=== PATIENT | male | born 1970 | race Asian ===

== ENCOUNTER 2016-07-13 20:59 | Inpatient (IN) | payer BC ==
[~2016-07-13] VITALS: Ht 172.7 cm; Wt 99.8 kg
[~2016-07-13 20:59] MED LIST: ALBUTEROL SULF8.5 GM INH; PREDNISONE20 MG ORAL
[2016-07-13] MEDS ORDERED: SIMVASTATIN5 MG ORAL (21:10)
[2016-07-13 21:30] VITALS: BP 152/94
[2016-07-13] MEDS ORDERED: SILDENAFIL20 MG ORAL (21:38)
[2016-07-13 21:39] LABS: ALANINE AMINOTRANSFERASE 47 U/L (3-41); ALBUMIN/GLOBULIN RATIO 1.6 (1.0-2.7); ANION GAP 19 (5-15); ASPARTATE AMINO TRANSFERASE 28 U/L (5-40); CALCIUM 9.1 mg/dL (8.6-10.2); CARBON DIOXIDE 23 mEQ/L (20-30); CHLORIDE 95 mEQ/L (98-107); CREATININE 1.1 mg/dL (0.7-1.2); GLOMERULAR FILTRATION RATE > 60 mL/min (>60); HEMOLYSIS 7; POTASSIUM 3.7 mEQ/L (3.4-4.9); SODIUM 137 mEQ/L (135-145); TOTAL PROTEIN 7.3 g/dL (6.6-8.7); TROPONIN I < 0.30 ng/mL (<=0.30)
[2016-07-13 21:41] LABS: BASOPHILS % (AUTO) 1.3 % (0.0-2.0); LYMPHOCYTES % (AUTO) 35.3 % (20.0-45.0); MEAN CORPUSCULAR HEMOGLOBIN 29.6 PG (27.0-31.0); MEAN CORPUSCULAR HGB CONC 32.4 G/DL (32.0-36.0); MEAN CORPUSCULAR VOLUME 91 FL (80-99); MEAN PLATELET VOLUME 6.7 FL (6.5-10.1); MONOCYTES % (AUTO) 5.3 % (1.0-10.0); PLATELET COUNT 193 K/UL (150-450); RED BLOOD COUNT 5.23 M/UL (4.70-6.10); RED CELL DISTRIBUTION WIDTH 12.1 % (11.6-14.8); WHITE BLOOD COUNT 7.9 K/UL (4.8-10.8)
[2016-07-13 21:49] LABS: CKMB 1.8 ng/mL (< 6.7)
[2016-07-13] MEDS ORDERED: Mylanta II UD 30ml ORAL ONE (22:30)
[2016-07-13] MEDS ORDERED: Dicyclomine HCl 10mg/5ml oral soln ORAL ONE (22:30)
[2016-07-13 22:32] VITALS: BP 138/98
--- NOTE | 2016-07-13 22:32 | Emergency Room Report ---
History of Present Illness General Chief Complaint: Chest Pain Source: Patient Present Illness HPI Patient present with complaints of midsternal chest pain This started when he was walking home earlier today he felt some radiation to the right hand And felt a numbness and tingling sensation The numbness has improved however patient had continued discomfort in the midsternal area and presents to the ER Denies any vomiting or diarrhea pain is 5/10 heaviness midsternal denies any dysuria frequency denies any fall or trauma Allergies: Coded Allergies: No Known Allergies (Unverified , 03/29/16) Patient History Past Medical History: see triage record Pertinent Family History: none Reviewed Nursing Documentation: PMH: Agreed, PSxH: Agreed Nursing Documentation-PMH Hx Hypertension: Yes Review of Systems All Other Systems: negative except mentioned in HPI Physical Exam Vital Signs Date Time Temp Pulse Resp B/P Pulse Ox O2 Delivery O2 Flow Rate FiO2 07/13/16 21:05 98.1 81 19 151/95 100 Room Air Sp02 EP Interpretation: reviewed, normal General Appearance: well appearing, no apparent distress Head: normocephalic, atraumatic Eyes: bilateral eye EOMI, bilateral eye PERRL ENT: hearing grossly normal, normal pharynx, TMs + canals normal, uvula midline Neck: full range of motion, supple, no meningismus, no bony tend Respiratory: lungs clear, normal breath sounds, no rhonchi, no respiratory distress, no retraction, no accessory muscle use Cardiovascular #1: normal peripheral pulses, regular rate, rhythm, no edema, no gallop, no JVD, no murmur Gastrointestinal: normal bowel sounds, non tender, soft, no mass, no organomegaly, non-distended, no guarding, no hernia, no pulsatile mass, no rebound Genitourinary: no CVA tenderness Musculoskeletal: normal inspection Neurologic: oriented x3, responsive, hat block maker III-XII nml as tested, motor strength/ tone normal, sensory intact Psychiatric: mood/affect normal Skin: normal color, no rash, warm/dry, palpation normal Lymphatic: normal inspection, no adenopathy Medical Decision Making Diagnostic Impression: Primary Impression: ACS (acute coronary syndrome) ER Course Patient is a fairly complex patient with multiple differential to consideration including but not limited to cardiac cardiopulmonary and vascular emergencies Patient's blood work and imaging initially is appropriate patient has already received aspirin at home at this time remains pain-free And admitted for further inpatient Labs Test 07/13/16 21:15 White Blood Count 7.9 K/UL (4.8-10.8) Red Blood Count 5.23 M/UL (4.70-6.10) Hemoglobin 15.5 G/DL (14.2-18.0) Hematocrit 47.7 % (42.0-52.0) Mean Corpuscular Volume 91 FL (80-99) Mean Corpuscular Hemoglobin 29.6 PG (27.0-31.0) Mean Corpuscular Hemoglobin Concent 32.4 G/DL (32.0-36.0) Red Cell Distribution Width 12.1 % (11.6-14.8) Platelet Count 193 K/UL (150-450) Mean Platelet Volume 6.7 FL (6.5-10.1) Neutrophils (%) (Auto) 56.0 % (45.0-75.0) Lymphocytes (%) (Auto) 35.3 % (20.0-45.0) Monocytes (%) (Auto) 5.3 % (1.0-10.0) Eosinophils (%) (Auto) 2.0 % (0.0-3.0) Basophils (%) (Auto) 1.3 % (0.0-2.0) Sodium Level 137 mEQ/L (135-145) Potassium Level 3.7 mEQ/L (3.4-4.9) Chloride Level 95 mEQ/L (98-107) Carbon Dioxide Level 23 mEQ/L (20-30) Anion Gap 19 (5-15) Blood Urea Nitrogen 12 mg/dL (7-23) Creatinine 1.1 mg/dL (0.7-1.2) Estimat Glomerular Filtration Rate > 60 mL/min (>60) Glucose Level 125 mg/dL (74-106) Calcium Level 9.1 mg/dL (8.6-10.2) Total Bilirubin 0.3 mg/dL (0.0-1.2) Aspartate Amino Transf (AST/SGOT) 28 U/L (5-40) Alanine Aminotransferase (ALT/SGPT) 47 U/L (3-41) Alkaline Phosphatase 80 U/L (40-129) Total Creatine Kinase 181 U/L (38-174) Creatine Kinase MB 1.8 ng/mL (< 6.7) Creatine Kinase MB Relative Index 0.9 Troponin I < 0.30 ng/mL (<=0.30) Total Protein 7.3 g/dL (6.6-8.7) Albumin 4.5 g/dL (3.5-5.2) Globulin 2.8 g/dL Albumin/Globulin Ratio 1.6 (1.0-2.7) EKG Diagnostic Results Rate: normal Rhythm: NSR ST Segments: other - Right bundle branch block nonspecific ST and T-wave changes Rhythm Strip Diag. Results EP Interpretation: yes Rate: 66 Rhythm: NSR, no PVC's, no ectopy Chest X-Ray Diagnostic Results EP Interpretation: Yes Findings: no consolidation, no effusion, no pneumothorax Number of Views: 1 Last Vital Signs Date Time Temp Pulse Resp B/P Pulse Ox O2 Delivery O2 Flow Rate FiO2 07/13/16 21:30 98.3 80 16 152/94 100 Room Air Status: improved Disposition: ADMITTED INPATIENT Condition: Serious Referrals: NON PHYSICIAN (PCP) VIOLETA TYLER D.O. Jul 13, 2016 22:32
[2016-07-13 23:32] VITALS: BP 127/96
[2016-07-14] VITALS (8 sets, daily range): BP systolic 104–139; BP diastolic 70–97
[2016-07-14] MEDS ORDERED: Morphine Sulfate 2mg/ml Inj IVP PRN (00:15)
[2016-07-14] MEDS ORDERED: Ketorolac 30mg Inj IV PRN (00:15)
[2016-07-14] MEDS ORDERED: Enalaprilat 2.5mg/2ml Inj IV PRN (00:15)
[2016-07-14] MEDS ORDERED: DuoNeb 0.5-3(2.5)mg/3ml neb HHN PRN (00:15)
[2016-07-14] MEDS ORDERED: Diltiazem 25mg/5ml IV PRN (00:15)
[2016-07-14] MEDS ORDERED: Nitroglycerin Subl 0.4mg tab (Bottle Of 25) SL PRN (00:15)
[2016-07-14] MEDS ORDERED: Miralax 17gm pkt ORAL PRN (00:15)
[2016-07-14] MEDS: Aspirin Baby 81mg ORAL SCH (09:38)
[2016-07-14] MEDS: Heparin 5000 units/ml inj SUBQ SCH ×2 (09:39→20:23)
--- NOTE | 2016-07-14 11:31 | Diagnostic Imaging Report ---
Indication: Chest pain Technique: One view of the chest Comparison: 03/29/2016 Findings: Lungs and pleural spaces are clear. Heart size is normal. Impression: No acute process
[2016-07-14 12:21] LABS: TROPONIN I < 0.30 ng/mL (<=0.30)
--- NOTE | 2016-07-14 15:00 | Consultation ---
History of Present Illness General Date patient seen: Jul 14, 2016 Chief Complaint: Chest Pain Reason for Consultation: chest pain Present Illness HPI 46 year old male presented to ER with complaints of midsternal chest pain while walking with some radiation to the right hand. He is admitted to telemetry for further work up. Allergies: Coded Allergies: No Known Allergies (Unverified , 03/29/16) Medication History Scheduled Prednisone* (Prednisone*), 40 MG ORAL DAILY Simvastatin (Zocor), 5 MG ORAL BEDTIME, (Reported) Scheduled PRN Albuterol Sulfate* (Albuterol Sulfate Mdi*), 2 PUFF INH Q4H PRN for cough/ wheezing Miscellaneous Medications Sildenafil Citrate (Sildenafil), 20 MG ORAL, (Reported) Patient History Healthcare decision maker pt alert and oriented Resuscitation status Full Code Advanced Directive on File Past Medical/Surgical History Past Medical/Surgical History: (1) ACS (acute coronary syndrome) Review of Systems All Other Systems: negative except mentioned in HPI Physical Exam General Appearance: WD/WN Lines, tubes and drains: peripheral Neck: non-tender, normal alignment Respiratory/Chest: chest wall non-tender, lungs clear Cardiovascular/Chest: normal peripheral pulses, regular rhythm Abdomen: normal bowel sounds, non tender Genitourinary/Rectal: normal genital exam, normal rectal exam Last 24 Hour Vital Signs Date Time Temp Pulse Resp B/P Pulse Ox O2 Delivery O2 Flow Rate FiO2 07/14/16 12:00 76 07/14/16 11:32 98.1 65 18 128/93 96 Room Air 07/14/16 09:44 97.7 71 18 124/85 98 Room Air 07/14/16 07:34 98.0 66 13 130/97 95 Room Air 07/14/16 06:58 98.0 62 14 120/79 100 Room Air 07/14/16 05:15 98.0 61 14 104/70 100 Room Air 07/14/16 01:40 98.0 62 14 127/76 100 Room Air 07/13/16 23:32 98.0 63 14 127/96 100 Room Air 07/13/16 22:32 98.0 68 14 138/98 100 Room Air 07/13/16 21:30 98.3 80 16 152/94 100 Room Air 07/13/16 21:30 80 16 Room Air 07/13/16 21:05 98.1 81 19 151/95 100 Room Air Intake and Output 07/13/16 07/14/16 19:00 07:00 Intake Total 50 ml Output Total 1600 ml Balance -1550 ml Intake Oral 50 ml Output Urine Total 1600 ml # Voids 1 Laboratory Tests Test 07/13/16 21:15 07/14/16 11:52 White Blood Count 7.9 K/UL (4.8-10.8) Red Blood Count 5.23 M/UL (4.70-6.10) Hemoglobin 15.5 G/DL (14.2-18.0) Hematocrit 47.7 % (42.0-52.0) Mean Corpuscular Volume 91 FL (80-99) Mean Corpuscular Hemoglobin 29.6 PG (27.0-31.0) Mean Corpuscular Hemoglobin Concent 32.4 G/DL (32.0-36.0) Red Cell Distribution Width 12.1 % (11.6-14.8) Platelet Count 193 K/UL (150-450) Mean Platelet Volume 6.7 FL (6.5-10.1) Neutrophils (%) (Auto) 56.0 % (45.0-75.0) Lymphocytes (%) (Auto) 35.3 % (20.0-45.0) Monocytes (%) (Auto) 5.3 % (1.0-10.0) Eosinophils (%) (Auto) 2.0 % (0.0-3.0) Basophils (%) (Auto) 1.3 % (0.0-2.0) Sodium Level 137 mEQ/L (135-145) Potassium Level 3.7 mEQ/L (3.4-4.9) Chloride Level 95 mEQ/L (98-107) L Carbon Dioxide Level 23 mEQ/L (20-30) Anion Gap 19 (5-15) H Blood Urea Nitrogen 12 mg/dL (7-23) Creatinine 1.1 mg/dL (0.7-1.2) Estimat Glomerular Filtration Rate > 60 mL/min (>60) Glucose Level 125 mg/dL (74-106) H Calcium Level 9.1 mg/dL (8.6-10.2) Total Bilirubin 0.3 mg/dL (0.0-1.2) Aspartate Amino Transf (AST/SGOT) 28 U/L (5-40) Alanine Aminotransferase (ALT/SGPT) 47 U/L (3-41) H Alkaline Phosphatase 80 U/L (40-129) Total Creatine Kinase 181 U/L (38-174) H Creatine Kinase MB 1.8 ng/mL (< 6.7) Creatine Kinase MB Relative Index 0.9 Troponin I < 0.30 ng/mL (<=0.30) < 0.30 ng/mL (<=0.30) Total Protein 7.3 g/dL (6.6-8.7) Albumin 4.5 g/dL (3.5-5.2) Globulin 2.8 g/dL Albumin/Globulin Ratio 1.6 (1.0-2.7) Height (Feet): 5 Height (Inches): 8.00 Weight (Pounds): 220 Medications Current Medications Medications (Trade) Dose Ordered Sig/Lam Route PRN Reason Start Time Stop Time Status Last Admin Dose Admin Acetaminophen (Tylenol) 650 mg Q4H PRN ORAL FEVER 07/14/16 00:15 08/13/16 00:14 Albuterol/ Ipratropium (DuoNeb 0.5-3(2.5)mg/3ml) 3 ml Q4H PRN HHN Shortness of Breath 07/14/16 00:15 07/19/16 00:14 Aspirin (ASA) 162 mg DAILY ORAL 07/14/16 09:00 08/13/16 08:59 07/14/16 09:38 Diltiazem HCl (Cardizem) 10 mg Q1H PRN IV heart rate more than 120, 07/14/16 00:15 08/13/16 00:14 Enalaprilat (Vasotec) 2.5 mg Q6H PRN IV sbp more than 160 07/14/16 00:15 08/13/16 00:14 Heparin Sodium (Porcine) (Heparin 5000 units/ml) 5,000 units EVERY 12 HOURS SUBQ 07/14/16 09:00 08/13/16 08:59 07/14/16 09:39 Morphine Sulfate (Morphine Sulfate) 2 mg Q4H PRN IVP severe Pain (Pain Scale 7-10) 07/14/16 00:15 07/21/16 00:14 Nitroglycerin (Ntg) 0.4 mg Q5M PRN SL Prn Chest Pain 3/24/17 00:15 08/13/16 00:14 Ondansetron HCl (Zofran) 4 mg Q6H PRN IVP Nausea & Vomiting 07/14/16 00:15 08/13/16 00:14 Pantoprazole (Protonix) 40 mg DAILY ORAL 07/14/16 09:00 08/13/16 08:59 07/14/16 09:38 Polyethylene Glycol (Miralax) 17 gm DAILYPRN PRN ORAL Constipation 07/14/16 00:15 08/13/16 00:14 Temazepam (Restoril) 15 mg HSPRN PRN ORAL Insomnia 07/14/16 00:15 07/21/16 00:14 Assessment/Plan Problem List: (1) ACS (acute coronary syndrome) ICD Codes: I24.9 - Acute ischemic heart disease, unspecified SNOMED: 106490317 Assessment/Plan serial ekg, troponin echo cardiology evaluatin low risk for PE. MEDINA BELCHER Jul 14, 2016 15:00
--- NOTE | 2016-07-14 15:28 | History & Physical ---
History and Physical History & Physicial Job: [id number] Shine Lima MD Jul 14, 2016 15:28
--- NOTE | 2016-07-14 20:26 | Cardiology Progress Note ---
Assessment/Plan Assessment/Plan parasthesia / weakness in arms for 30-40 seconds jonny walkign with dog adn greocery bag hyperlipidemia he felt as if he was bign pull down denies any chest pain all torp neg ekg rbbb 2nd t changes if almagn to say in hosptialo to have stress test on moday fine otherwise will need to see me as outpt to perform the test ambualte inhalls no heacy exertion activity until see by me as outpt Objective Last 24 Hour Vital Signs Date Time Temp Pulse Resp B/P Pulse Ox O2 Delivery O2 Flow Rate FiO2 07/14/16 19:53 73 16 Room Air 07/14/16 16:00 98.2 72 20 115/87 98 Room Air 07/14/16 12:00 76 07/14/16 11:32 98.1 65 18 128/93 96 Room Air 07/14/16 09:44 97.7 71 18 124/85 98 Room Air 07/14/16 07:34 98.0 66 13 130/97 95 Room Air 07/14/16 06:58 98.0 62 14 120/79 100 Room Air 07/14/16 05:15 98.0 61 14 104/70 100 Room Air 07/14/16 01:40 98.0 62 14 127/76 100 Room Air 07/13/16 23:32 98.0 63 14 127/96 100 Room Air 07/13/16 22:32 98.0 68 14 138/98 100 Room Air 07/13/16 21:30 98.3 80 16 152/94 100 Room Air 07/13/16 21:30 80 16 Room Air 07/13/16 21:05 98.1 81 19 151/95 100 Room Air Intake and Output 07/13/16 07/14/16 19:00 07:00 Intake Total 50 ml Output Total 1600 ml Balance -1550 ml Intake Oral 50 ml Output Urine Total 1600 ml # Voids 1 Laboratory Tests Test 07/13/16 21:15 07/14/16 11:52 White Blood Count 7.9 K/UL (4.8-10.8) Red Blood Count 5.23 M/UL (4.70-6.10) Hemoglobin 15.5 G/DL (14.2-18.0) Hematocrit 47.7 % (42.0-52.0) Mean Corpuscular Volume 91 FL (80-99) Mean Corpuscular Hemoglobin 29.6 PG (27.0-31.0) Mean Corpuscular Hemoglobin Concent 32.4 G/DL (32.0-36.0) Red Cell Distribution Width 12.1 % (11.6-14.8) Platelet Count 193 K/UL (150-450) Mean Platelet Volume 6.7 FL (6.5-10.1) Neutrophils (%) (Auto) 56.0 % (45.0-75.0) Lymphocytes (%) (Auto) 35.3 % (20.0-45.0) Monocytes (%) (Auto) 5.3 % (1.0-10.0) Eosinophils (%) (Auto) 2.0 % (0.0-3.0) Basophils (%) (Auto) 1.3 % (0.0-2.0) Sodium Level 137 mEQ/L (135-145) Potassium Level 3.7 mEQ/L (3.4-4.9) Chloride Level 95 mEQ/L (98-107) L Carbon Dioxide Level 23 mEQ/L (20-30) Anion Gap 19 (5-15) H Blood Urea Nitrogen 12 mg/dL (7-23) Creatinine 1.1 mg/dL (0.7-1.2) Estimat Glomerular Filtration Rate > 60 mL/min (>60) Glucose Level 125 mg/dL (74-106) H Calcium Level 9.1 mg/dL (8.6-10.2) Total Bilirubin 0.3 mg/dL (0.0-1.2) Aspartate Amino Transf (AST/SGOT) 28 U/L (5-40) Alanine Aminotransferase (ALT/SGPT) 47 U/L (3-41) H Alkaline Phosphatase 80 U/L (40-129) Total Creatine Kinase 181 U/L (38-174) H Creatine Kinase MB 1.8 ng/mL (< 6.7) Creatine Kinase MB Relative Index 0.9 Troponin I < 0.30 ng/mL (<=0.30) < 0.30 ng/mL (<=0.30) Total Protein 7.3 g/dL (6.6-8.7) Albumin 4.5 g/dL (3.5-5.2) Globulin 2.8 g/dL Albumin/Globulin Ratio 1.6 (1.0-2.7) JIGNA AL Jul 14, 2016 20:26
--- NOTE | 2016-07-14 20:28 | History and Physical Report ---
DATE OF ADMISSION: 07/13/2016 CHIEF COMPLAINT: Left-sided chest wall pressure pain as well as right upper extremity tingling and numbness. HISTORY OF PRESENT ILLNESS: This is a 46-year-old gentleman with past medical history significant for dyslipidemia and erectile dysfunction who was presented to the hospital complaining about right hand tingling and numbness for several minutes and then left-sided chest pressure. He was at the grocery shop, on the way home he felt chest discomfort in the chest wall and subsequently lasted about two seconds, very sharp pain, constant. He said that went home took two aspirins and then and he decided to come to the emergency room for further evaluation and workup. Shortly after initial evaluation in the emergency, the patient was admitted to the hospital with chest pain, possible acute coronary syndrome. He denies any diaphoresis. He complained about 5/10 heaviness in the midsternal area. Denies any dysuria or frequency. Denies any fall or chest trauma. PAST MEDICAL HISTORY/PAST SURGICAL HISTORY: As above, history of erectile dysfunction and has dyslipidemia. MEDICATIONS: At home is significant simvastatin 5 mg p.o. at bedtime as well as sildenafil 20 mg b.i.d. p.r.n. ALLERGIES: No known drug allergies. SOCIAL HISTORY: Denies any smoking. Socially drinks. No substance abuse. 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 FAMILY HISTORY: Father with liver cancer and mother with breast cancer. REVIEW OF SYSTEMS: Mostly as above. Denies any dysuria, frequency, hematuria or hematochezia. Denies any hemoptysis or hematochezia. Denies any suicidal or homicidal ideation. Denies any loss of consciousness. Denies any double vision. Denies any chest wall pressure at this time. PHYSICAL EXAMINATION: GENERAL: The patient awake, responsive, no acute distress. VITAL SIGNS: On admission, temperature of 98.1 degrees, pulse of 81, respiration 18, and blood pressure 151/95. HEENT: Pupils are equal and reactive to light. Extraocular movements are intact. NECK: Supple. No JVD. LUNGS: Good air entry. No wheezing or rales. HEART: S1 and S2. Regular rhythm. No gallops. ABDOMEN: Soft, nondistended and nontender. Mildly obese. EXTREMITIES: No cyanosis, clubbing, or edema. NEUROLOGIC: Cranial nerves II to XII grossly intact. Motor strength 5/5 in all extremities. Gait is intact. GENITOURINARY: Refused and deferred. RECTAL: Refused and deferred. PSYCHIATRIC: Mood and affect is intact. LABORATORY AND DIAGNOSTIC DATA: Laboratory data on admission, WBC of 7.9, hemoglobin 15, hematocrit 47 and platelet is 193,000. Sodium 137, potassium 3.7, chloride 95, bicarbonate 23, BUN 12, creatinine 1.1, and glucose 125. AST of 28 and ALT of 47. First and second troponin is less than 0.30. Chest x-ray is unremarkable, no acute cardiopulmonary disease. EKG shows normal sinus rhythm at 78 with right bundle-branch block. No ST elevation was noted. T-wave inversion in the inferior leads. ASSESSMENT: 1. Chest pain, possible acute coronary syndrome. 2. Right bundle-branch block. 3. Dyslipidemia. 4. Erectile dysfunction. PLAN: Admit the patient to telemetry. We will follow up laboratory. Discussed the case with Dr. Curran from Pulmonary Critical Care and Dr. Star Quiñonez from Cardiology. We follow up with 2D echo. Cholesterol level and consider getting a stress test if the patient's status improves. Code Status is Full Code. DVT prophylaxis and heparin subcutaneous. Shine Lima M.D. DR: HELENA JOB#: [id number] CC:
[2016-07-15] VITALS: BP 121/84
--- NOTE | 2016-07-15 01:58 | Consultation ---
DATE OF CONSULTATION: 07/14/2016 CARDIOLOGY CONSULTATION REFERRING PHYSICIAN: 1. Tyrone Curran M.D. 2. Shine Lima M.D. REASON FOR REFERRAL: Palpitations. HISTORY OF PRESENT ILLNESS: This is a 46-year-old gentleman, who apparently was walking with his dog and a bag of groceries yesterday, that he developed sudden numbness in his arms and felt like somebody was pulling him down sensation and he panic. He started to having some palpitations. These symptoms eventually resolved and he walked home, called the sister and the patient's sister came to the hospital. He really does not have any pain or pressure in his chest. He does not have any dyspnea on exertion. He has no PND or orthopnea. He usually does not get dizzy or lightheaded on standing. This was the first episode of such episodes before and he has never had any before. PAST MEDICAL HISTORY: Positive for hyperlipidemia and gastroesophageal reflux disease. No history of heart attack, cancer, stroke, hepatitis, tuberculosis, asthma, or emphysema. No ulcers, no kidney problems, liver problems, thyroid problems, anemia, or arthritis. SOCIAL HISTORY: He used to smoke until approximately a year and a half ago and he quit at that time. He socially drinks alcoholic beverages. No drugs. 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 REVIEW OF SYSTEMS: Gastrointestinal: He has had some diarrhea. Genitourinary: Negative. Pulmonary: Negative. Constitutional: Negative. Neurological: Negative. PHYSICAL EXAMINATION: GENERAL: Shows to be a middle-aged gentleman, in no apparent distress. VITAL SIGNS: The patient's vital signs have been anywhere between 104/70 to 128/93 today. At the time of his presentation to the emergency room yesterday, his blood pressure was 151/95. HEENT: Unremarkable. NECK: Supple. No jugular venous distention. No abdominojugular reflux. LUNGS: Clear to auscultation and percussion. CARDIAC EXAMINATION: S1 is normal. S2 is normal. Regular rate and rhythm. No heaves, thrills, gallops, or rubs are noted. ABDOMEN: Soft and nontender. Positive bowel sounds. EXTREMITIES: There is no clubbing, cyanosis, nor edema. NEUROLOGIC: He is awake, alert, responsive, and in no apparent respiratory distress. LABORATORY AND DIAGNOSTIC DATA: EKG showed left bundle-branch conduction defect with secondary T-wave changes. No significant ST-T wave abnormalities. An echocardiogram was done, preliminary report shows normal left ventricular systolic function, ejection fraction 65% to 70%, really no other significant abnormalities. His laboratories white count 7.9, hemoglobin 13.5, and platelet count 193,000. His sodium is 137, potassium 3.5, chloride 97, bicarbonate 23, BUN of 22, creatinine 1.1, and glucose of 125. Liver function tests are normal. CK of 181. Two sets of cardiac enzymes are all negative. Imaging, he had a chest x-ray in the emergency room that shows basically no acute process. ASSESSMENT AND PLAN: 1. Paresthesias short duration. 2. Possible near syncope. 3. Hyperlipidemia history. PLAN: Dr. Curran and Dr. Lima, this patient was seen in cardiac consultation. The patient's description is not one of chest pain rather that he is feeling like he was being pulled down after this tingling sensation in his arms. He does not seem to have any symptoms at this time, but it lasted only approximately 30 seconds. His telemetry data so far is negative. His EKG shows a right bundle block conduction defect. That the duration of this is unknown. The patient has no evidence of myonecrosis. His echocardiogram preliminary seems unremarkable. He may benefit from stress testing in light of the fact that his symptoms occurred while he was walking that he is willing to wait until Sunday fine if he is not continue to see me as outpatient to have the testing performed. Star Quiñonez M.D. DR: ORALIA JOB#: [id number] CC:
[2016-07-15 04:00] VITALS: BP 119/77
[2016-07-15 06:51] LABS: PROTHROMBIN TIME 9.9 SEC (9.30-11.50)
[2016-07-15 06:57] LABS: TROPONIN I < 0.30 ng/mL (<=0.30)
[2016-07-15 07:01] LABS: BASOPHILS % (AUTO) 0.8 % (0.0-2.0); EOSINOPHILS % (AUTO) 3.1 % (0.0-3.0); LYMPHOCYTES % (AUTO) 27.7 % (20.0-45.0); MEAN CORPUSCULAR HEMOGLOBIN 29.5 PG (27.0-31.0); MEAN CORPUSCULAR VOLUME 89 FL (80-99); MEAN PLATELET VOLUME 7.2 FL (6.5-10.1); MONOCYTES % (AUTO) 7.2 % (1.0-10.0); NEUTROPHILS % (AUTO) 61.2 % (45.0-75.0); PLATELET COUNT 206 K/UL (150-450); RED BLOOD COUNT 5.67 M/UL (4.70-6.10); RED CELL DISTRIBUTION WIDTH 12.1 % (11.6-14.8)
[2016-07-15 07:03] LABS: CHOLESTEROL/HDL RATIO 5.6 (3.3-4.4); CRP QUANT 0.3 mg/dL (< 0.5)
[2016-07-15 08:00] VITALS: BP 123/89
[2016-07-15] MEDS: Aspirin Baby 81mg ORAL SCH (08:23)
[2016-07-15] MEDS: Heparin 5000 units/ml inj SUBQ SCH (08:24)
--- NOTE | 2016-07-15 11:18 | Pulmonology Progress Note ---
Assessment/Plan Problems: (1) ACS (acute coronary syndrome) Assessment/Plan pt is being discharged to have stress test by Dr. Quiñonez asymptomatic Subjective ROS Limited/Unobtainable: No Constitutional: Reports: no symptoms HEENT: Repors: no symptoms Respiratory: Reports: no symptoms Allergies: Coded Allergies: No Known Allergies (Unverified , 03/29/16) Objective Last 24 Hour Vital Signs Date Time Temp Pulse Resp B/P Pulse Ox O2 Delivery O2 Flow Rate FiO2 07/15/16 09:35 75 16 Room Air 07/15/16 08:00 81 07/15/16 08:00 97.7 74 20 123/89 96 Room Air 07/15/16 04:00 97.3 69 16 119/77 96 Room Air 07/15/16 04:00 61 07/15/16 00:00 65 07/15/16 00:00 97.9 73 16 121/84 98 Room Air 07/14/16 20:00 75 07/14/16 19:53 73 16 Room Air 07/14/16 19:00 98.1 80 20 139/97 96 Room Air 07/14/16 16:00 98.2 72 20 115/87 98 Room Air 07/14/16 16:00 72 07/14/16 12:00 76 07/14/16 11:32 98.1 65 18 128/93 96 Room Air Intake and Output 07/14/16 07/15/16 19:00 07:00 Intake Total 240 ml 780 ml Balance 240 ml 780 ml Intake Oral 240 ml 780 ml # Voids 1 General Appearance: WD/WN HEENT: normocephalic Cardiovascular: normal peripheral pulses Laboratory Tests 07/14/16 11:52: Troponin I < 0.30 07/15/16 05:35: Troponin I < 0.30, White Blood Count 8.0, Red Blood Count 5.67, Hemoglobin 16.8 , Hematocrit 50.8, Mean Corpuscular Volume 89, Mean Corpuscular Hemoglobin 29.5 , Mean Corpuscular Hemoglobin Concent 33.0, Red Cell Distribution Width 12.1, Platelet Count 206, Mean Platelet Volume 7.2, Neutrophils (%) (Auto) 61.2, Lymphocytes (%) (Auto) 27.7, Monocytes (%) (Auto) 7.2, Eosinophils (%) (Auto) 3.1H, Basophils (%) (Auto) 0.8, Prothrombin Time 9.9, Prothromb Time International Ratio 1.0, Activated Partial Thromboplast Time 27, C-Reactive Protein, Quantitative 0.3, Triglycerides Level 292H, Cholesterol Level 179, LDL Cholesterol 89, HDL Cholesterol 32, Cholesterol/HDL Ratio 5.6H, Thyroid Stimulating Hormone (TSH) 1.000 Current Medications Medications (Trade) Dose Ordered Sig/Lam Route PRN Reason Start Time Stop Time Status Last Admin Dose Admin Acetaminophen (Tylenol) 650 mg Q4H PRN ORAL FEVER 07/14/16 00:15 08/13/16 00:14 Albuterol/ Ipratropium (DuoNeb 0.5-3(2.5)mg/3ml) 3 ml Q4H PRN HHN Shortness of Breath 07/14/16 00:15 07/19/16 00:14 Aspirin (ASA) 162 mg DAILY ORAL 07/14/16 09:00 08/13/16 08:59 07/15/16 08:23 Diltiazem HCl (Cardizem) 10 mg Q1H PRN IV heart rate more than 120, 07/14/16 00:15 08/13/16 00:14 Enalaprilat (Vasotec) 2.5 mg Q6H PRN IV sbp more than 160 07/14/16 00:15 08/13/16 00:14 Heparin Sodium (Porcine) (Heparin 5000 units/ml) 5,000 units EVERY 12 HOURS SUBQ 07/14/16 09:00 08/13/16 08:59 07/15/16 08:24 Morphine Sulfate (Morphine Sulfate) 2 mg Q4H PRN IVP severe Pain (Pain Scale 7-10) 07/14/16 00:15 07/21/16 00:14 Nitroglycerin (Ntg) 0.4 mg Q5M PRN SL Prn Chest Pain 07/14/16 00:15 08/13/16 00:14 Ondansetron HCl (Zofran) 4 mg Q6H PRN IVP Nausea & Vomiting 07/14/16 00:15 08/13/16 00:14 Pantoprazole (Protonix) 40 mg BID PRN ORAL GI DISTRESS 07/14/16 20:15 08/13/16 20:14 3/24/17 20:23 Pantoprazole (Protonix) 40 mg DAILY ORAL 07/14/16 09:00 08/13/16 08:59 07/15/16 08:23 Polyethylene Glycol (Miralax) 17 gm DAILYPRN PRN ORAL Constipation 07/14/16 00:15 08/13/16 00:14 Temazepam (Restoril) 15 mg HSPRN PRN ORAL Insomnia 07/14/16 00:15 07/21/16 00:14 MEDINA BELCHER Jul 15, 2016 11:18
[2016-07-15 12:00] VITALS: BP 146/89
--- NOTE | 2016-07-15 18:51 | Cardiology Report ---
APPROVED REPORT EKG Measurement Heart [id number] Normal sinus rhythm Right bundle branch block Septal infarct, age undetermined Abnormal ECG
--- NOTE | 2016-07-17 08:33 | Cardiology Report ---
APPROVED REPORT EXAM: Two-dimensional and M-mode echocardiogram with Doppler and color Doppler. INDICATION LV function M-Mode DIMENSIONS IVSd1.2 (0.7-1.1cm)Left Atrium (MM)3.0 (1.6-4.0cm) LVDd4.8 (3.5-5.6cm)Aortic Root3.4 (2.0-3.7cm) PWd1.3 (0.7-1.1cm)Aortic Cusp Exc.1.7 (1.5-2.0cm) LVDs3.0 (2.5-4.0cm) PWs1.6 cm Normal left ventricular chamber size, systolic function and wall motion. Left ventricular ejection fraction estimated to be 65-70 %. Mild left ventricular hypertrophy. Anterior Echo-free space, may be due to pericardial fat or effusion. All other cardiac chamber sizes are within normal limits. Mild focal aortic valve sclerosis with adequate cusp excursion. Mildly thickened mitral valve leaflets with normal excursion. Mitral annulus and aortic root calcification. Pulmonic valve not well visualized. Normal tricuspid valve structure. IVC at normal size with physiologic collapse. A color flow and spectral Doppler study was performed and revealed: No aortic regurgitation. Trace mitral regurgitation. Mitral diastolic velocities suggest reduced left ventricular relaxation c/w mild LV diastolic dysfunction (Grade I). Trace tricuspid regurgitation. Tricuspid systolic velocities suggests peak right ventricular systolic pressure of 13 mmHg.
--- NOTE | 2016-07-17 08:55 | Discharge Summary ---
Discharge Summary Hospital Course Date of Admission Jul 13, 2016 at 21:24 Date of Discharge Jul 15, 2016 at 12:48 Admitting Diagnosis ACUTE CORONARY SYNDROME MALIHA Culver is a 46 year old male who was admitted on Jul 13, 2016 at 21:24 for Acute Coronary Syndrome Hospital Course dc summary # [id number] Discharge Medications Continued Medications: Albuterol Sulfate* (Albuterol Sulfate Mdi*) 8.5 Gm Hfa.aer.ad 2 PUFF INH Q4H PRN for cough/wheezing, #1 EA 0 Refills Discharge Condition Upon Discharge: stable Discharge Disposition Patient was discharged to Home (01) Discharge Diagnoses: Discharge Instructions Discharge Instructions Special Instructions I have been assigned to complete a D/C Summary on this account. I was not involved in the patient management Sumi Pratt NP ([place]) Jul 17, 2016 08:55
--- NOTE | 2016-07-18 00:08 | Discharge Summary 2 SIG ---
DATE OF ADMISSION: 07/13/2016 DATE OF DISCHARGE: 07/15/2016 REASON FOR ADMISSION: 46-year-old male, presented to emergency room with complaints of midsternal chest pain. It started when he was walking home with a bag of groceries. He felt some numbness and tingling sensation and subsequently developed feeling of heaviness with a chest pain and radiation to the right hand. The numbness improved. The patient continued to have discomfort in the midsternal area and came to emergency room for evaluation. He denied shortness of breath. Denied vomiting or diarrhea. Denied recent fall or trauma. No fevers. No chills. No dysuria. No urinary frequency. Workup in the emergency room was unremarkable. First troponin was negative. EKG revealed normal sinus rhythm with right bundle-branch block. Chest x-ray was negative. The patient was admitted for further management. ADMITTING DIAGNOSES: 1. Chest pain. 2. Possible acute coronary syndrome. 3. Right bundle-branch block. HOSPITAL COURSE: The patient was admitted to the telemetry floor. Cardiology and pulmonology consults were requested. Serial troponin x3 were negative. EKG revealed normal sinus rhythm. Telemetry with normal sinus rhythm. No ischemic changes. The patient does have evidence of right bundle branch block - unknown duration. Echocardiogram revealed preserved ejection fraction of 65% to 70% with right ventricular systolic pressure of 13 and evidence of mild left ventricular hypertrophy. Lipid panel revealed elevated triglycerides of 292 with normal cholesterol. The patient was educated on low-fat cardiac diet. Due to the elevated triglycerides, recommended low-fat cardiac diet . Check lipid panel in 3 months and if not improvement with lifestyle changes, recommend to start on medication. TSH was within normal limits. Referral Nurse seen and evaluated the patient. According to the shrimping boat captain, the patient does not have any chest pressure or chest pain as he described the sensation in right arm. It was more like a sudden numbness in his arm. He felt like someone was pulling him down , subsequently he became panic and had some palpitations. Symptoms gradually resolved. He denied shortness of breath and paroxysmal nocturnal dyspnea or orthopnea. He never was dizzy or lightheaded on standing. According to the shrimping boat captain, description of pain was not of the chest pain but rather like a feeling of sensation felt in his arm. The sensation only lasted about 30 seconds. Telemetry data was negative. The patient had no evidence of myonecrosis. According to shrimping boat captain, the patient would benefit from stress test as an outpatient. Referral Nurse cleared the patient for discharge, The patient was stable for discharge and follow up with the shrimping boat captain as an outpatient. DISCHARGE DIAGNOSES: 1. Possible near-syncope episode. 2. Right bundle-branch block. 3. Dyslipidemia (hypertriglyceridemia). 4. Paresthesia of short duration. DISCHARGE MEDICATIONS: See medication reconciliation list. DISCHARGE INSTRUCTIONS: The patient to follow up with the shrimping boat captain next week to schedule stress test. Shine Lima M.D. I have been assigned to dictate discharge summary on this account and I was not involved in the patient's management. Sumi Fraserconey island hospitalZenaida NAbdiPAbdi DR: ALICIA JOB#: [id number] CC: GENEVA
== END 2016-07-15 12:48 | disposition home or self-care (01) | DRG 93 ==
LOC: EMR 21:11 → 2E 21:24 → EDBEDREQ 07-14 05:09 → 2E 07-14 23:04
DX: R20.8 Other disturbances of skin sensation (principal); R55 Syncope and collapse; R00.2 Palpitations; I45.10 Unspecified right bundle-branch block; E78.1 Pure hyperglyceridemia; K21.9 Gastro-esophageal reflux disease without esophagitis; Z87.891 Personal history of nicotine dependence
CPT/HCPCS: 36415; 71010; 80053; 80061; 82550; 82553; 84443; 84484; 85025; 85610; 85730; 86140; 93005; 93306; 94664